=== PATIENT | female | born 1945 ===

== ENCOUNTER 2016-11-11 15:21 | Emergency (ER) | payer BC ==
--- NOTE | 2016-11-11 15:44 | UC ---
Hand/Wrist HPI - HPI Summary HPI Summary: 70 y/o female presents to the urgent care c/o RT #5 finger pain ans swelling after falling while running in the [place] around 1515 pm. Pt displaced her finger, Pain was 8/10 with numbness after the injury. Now her pain is 2/10 at rest w/o any numbness. Pt denies fever, SOB, chest pain, N/V/D. Pt has not other complains. - History Of Current Complaint Hx Obtained From: Patient Hx Last Menstrual Period: menopausal ?: No Onset/Duration: Sudden Onset - about 40min ago Severity Initially: Severe Severity Currently: Mild Pain Intensity: 2 - at rest Pain Scale Used: 0-10 Numeric Character Of Pain: Sharp Aggravating Factor(s): Movement Alleviating: Rest, Ice Associated Signs And Symptoms: Positive: Swelling, Numbness/Tingling <Aby Valente - Last Filed: 11/13/16 15:35> <Kerri Ritter - Last Filed: 11/14/16 07:57> - History Of Current Complaint Chief Complaint: UCUpperExtremity Stated Complaint: FINGER INJURY Time Seen by Provider: 11/11/16 15:34 - Allergies/Home Medications Allergies/Adverse Reactions: Allergies Allergy/AdvReac Type Severity Reaction Status Date / Time Acetaminophen [From Vicodin] Allergy Nausea Verified 11/11/16 15:32 Hydrocodone [From Vicodin] Allergy Nausea Verified 11/11/16 15:32 Prednisone Allergy See Comment Verified 11/11/16 15:32 Home Medications: Home Medications Carvedilol TAB* [Coreg TAB*] 3.125 mg PO BID 11/11/16 [History Confirmed ] Cholecalciferol [Vitamin D3] 1,000 unit PO 11/11/16 [History] Citalopram TAB* [Celexa TAB*] 20 mg PO DAILY 11/11/16 [History Confirmed ] Digoxin TAB* [Lanoxin TAB*] 0.125 mg PO DAILY 11/11/16 [History Confirmed ] Felodipine (NF) [Plendil (NF)] 5 mg PO 11/11/16 [History] [place]-3 Fatty Acids [[place] 3 1000 mg] 1 cap PO 11/11/16 [History] Potassium Chlor TAB* [Klor Con ER TAB 10 MEQ*] 10 meq PO DAILY 11/11/16 [ History Confirmed 11/11/16] Simvastatin TAB(NF) [Zocor 20 MG (NF)] 20 mg PO 169911/11/16 [History Confirmed 11/11/16] Torsemide 5 mg PO 11/11/16 [History] Vitamin B Complex TAB* [Complex B-100*] 1 tab PO DAILY 11/11/16 [History Confirmed 11/11/16] Warfarin TAB(*) [Coumadin TAB(*)] 5 mg PO 169911/11/16 [History Confirmed 11/11] PMH/Surg Hx/FS Hx/Imm Hx Previously Healthy: Yes Cardiovascular History: Congestive Heart Failure, Atrial Fibrillation - Surgical History Surgical History: Yes Surgery Procedure, Year, and Place: bilat hip replacement - Family History Known Family History: Positive: Hypertension - Social History Occupation: Retired Lives: With Family Alcohol Use: None Substance Use Type: None Smoking Status (MU): Never Smoked Tobacco <Aby Valente - Last Filed: 11/13/16 15:35> Review of Systems Constitutional: Negative Skin: Negative Eyes: Negative ENT: Negative Respiratory: Negative Cardiovascular: Negative Gastrointestinal: Negative Genitourinary: Negative Motor: Negative Neurovascular: Negative Musculoskeletal: Other: - RT #5 finger lisplacec Neurological: Negative Psychological: Negative All Other Systems Reviewed And Are Negative: Yes <Aby Valente - Last Filed: 11/13/16 15:35> Physical Exam Triage Information Reviewed: Yes Appearance: Well-Appearing, No Pain Distress, Well-Nourished Vital Signs: Initial Vital Signs Temp 98.4 F 11/11/16 15:28 Pulse 72 11/11/16 15:28 Resp 18 11/11/16 15:28 Pulse Ox 97 11/11/16 15:28 Vital Signs Reviewed: Yes Eye Exam: Normal Eyes: Positive: Conjunctiva Clear - PERRLA, EOMI, fundi grossly normal ENT Exam: Normal ENT: Positive: Normal ENT inspection, Hearing grossly normal, Pharynx normal, TMs normal Dental Exam: Normal Neck exam: Normal Neck: Positive: Supple, Nontender, No Lymphadenopathy Respiratory Exam: Normal Respiratory: Positive: Chest non-tender, Lungs clear, Normal breath sounds Cardiovascular Exam: Normal Cardiovascular: Positive: RRR, No Murmur, Pulses Normal, Brisk Capillary Refill Abdominal Exam: Normal Abdomen Description: Positive: Nontender, No Organomegaly, Soft. Negative: CVA Tenderness (R), CVA Tenderness (L) Bowel Sounds: Positive: Absent Musculoskeletal Exam: Normal Musculoskeletal: Positive: Other: - RT #5 phalax with moderate swelling and diplaced laterally at the level of the #5 PIPJ, tenderness to light palpation. capillary refill intact. sensation and pulses and wnl. Neurological Exam: Normal Psychological Exam: Normal Skin Exam: Normal <Aby Valente - Last Filed: 11/13/16 15:35> Vital Signs: Initial Vital Signs Temp 98.4 F 11/11/16 15:28 Pulse 72 11/11/16 15:28 Resp 18 11/11/16 15:28 BP 138/88 11/11/16 15:28 Pulse Ox 97 11/11/16 15:28 <Kerri Ritter - Last Filed: 11/14/16 07:57> Hand/Wrist Course/Dx - Course Course Of Treatment: 70 y/o female presents to the urgent care c/o RT #5 finger pain and swelling after falling while running [place] the [place] around 1515 pm. Pt displaced her finger, Pain was 8/10 with numbness after the injury. Now her pain is 2/10 at rest w/o any numbness. Pt denies fever, SOB, chest pain, N/V/D. Pt has not other complains. Hx obtained. PE abnormal findings: RT #5 phalax with moderate swelling and diplaced laterally at the level of the #5 PIPJ, tenderness to light palpation. capillary refill intact. sensation and pulses and wnl. X-ray of the RT #5 finger ordered: Imppression: Rt fifth PIP joint dislocated. Pt explained procedure of reduction and she declined digital block and acccepted the procedure w/o any anesthesia. Pt RT fifth PIP joint was sucessfully reduced into the normal position. RT fifth PIP joint can flex and extend normally. But with full extension she has mild medial subluxation. Pt finger immobilized with a finger splint and body tape toguether to the Rt #4 finger. Pt neurovascular intact after placement of slpint. Second X-ray of the RT #5 finger ordered after reduction. Impression: Interval reduction of the fifith PIP joint dislocation. Pt Rx ibuprofen prn q6- 8hrs to alleviate symptoms of swelling and pain. Pt advised to f/u with DR Whitten , hand surgeon as soon as possible for further management since she may have a partial or full tendon tear.Pt also advised if swellin or pain increases or numbness develops despite ibuprofen to go immediatelly to the ER for further evaluation and treatment. Pt understood and agreed. left the clinic ambulating - Differential Dx/Diagnosis Differential Diagnosis/HQI/PQRI: Contusion, Dislocation, Fracture, Sprain, Strain Provider Diagnoses: 1- RT #5th PIP joint dislocation. <Aby Valente - Last Filed: 11/13/16 15:35> Discharge <Aby Valente - Last Filed: 11/13/16 15:35> <Kerri Ritter - Last Filed: 11/14/16 07:57> - Discharge Plan Condition: Stable Disposition: HOME Prescriptions: Acetaminophen TAB* [Tylenol TAB*] 650 mg PO Q6H PRN #30 tab PRN Reason: Pain Patient Education Materials: Finger Dislocation (ED) Referrals: [facility] [place], [place] [facility] [Outside] Steve Aiken MD [Medical Doctor] - As Soon As Possible (RT #5 finger PIPJ dislocated and reduced ON 11/11/2016. Pt has mild medial subluxation on hyperextension. PLEASE EVALUATE) Additional Instructions: PLease keep up finger immobilized, continue applying ICE, elevate. Take Tylenol prn q4-6hrs to alleviate symptoms of pain and swelling. F/u with Orthopedic doctor for further evaluation as soon as possible. If pain increaes and swelling despite taking medication please go to the ED for further evaluation and treatment. Attestation Statement User Type: Provider - I was available for consult. This patient was seen by the CLARISSA. The patient was not presented to, seen by, or examined by me. -Garrison <Kerri Ritter - Last Filed: 11/14/16 07:57>
--- NOTE | 2016-11-11 16:03 | RAD ---
HISTORY: Fall, right fifth finger injury COMPARISONS: None VIEWS: 3, Frontal, lateral, and oblique views of the fifth digit of the right hand FINDINGS: BONE DENSITY: Normal. BONES: There is no displaced fracture. JOINTS: There is no arthropathy. ALIGNMENT: There is posterior and medial (ulnar) displacement of the middle phalanx with respect to the proximal phalanx at the PIP joint SOFT TISSUES: Unremarkable. OTHER FINDINGS: None. IMPRESSION: RIGHT FIFTH PIP JOINT DISLOCATION
--- NOTE | 2016-11-11 16:39 | RAD ---
HISTORY: Post reduction COMPARISONS: November 11, 2016 at 3:48 PM VIEWS: 3, Frontal, lateral, and oblique views of the fifth digit of the right hand, performed in a splint which appears fine bone detail FINDINGS: BONE DENSITY: Normal. BONES: There is no displaced fracture. JOINTS: There is no arthropathy. ALIGNMENT: There has been interval reduction of the fifth PIP joint dislocation SOFT TISSUES: Unremarkable. OTHER FINDINGS: None. IMPRESSION: INTERVAL REDUCTION OF THE FIFTH PIP JOINT DISLOCATION
== END 2016-11-11 17:15 | disposition home or self-care (01) ==
LOC: UCEAST 15:21
DX: S63.286A Dislocation of proximal interphalangeal joint of right little finger, initial encounter (principal); W18.30XA Fall on same level, unspecified, initial encounter; Y93.02 Activity, running; Y92.89 Other specified places as the place of occurrence of the external cause; I50.9 Heart failure, unspecified; I48.91 Unspecified atrial fibrillation; Z79.01 Long term (current) use of anticoagulants; Z96.643 Presence of artificial hip joint, bilateral; Z88.6 Allergy status to analgesic agent; Z88.5 Allergy status to narcotic agent; Z88.8 Allergy status to other drugs, medicaments and biological substances
CPT/HCPCS: 26770; 73140; 99203; G0463